=== PATIENT | male | born 1975 | race Caucasian/White ===

== ENCOUNTER 2016-03-03 23:56 | Emergency (ER) | payer MEDICAID, OTHER ==
[~2016-03-03] VITALS: Ht 165.1 cm; Wt 85.5 kg
[2016-03-04 00:03] VITALS: Ht 165.1 cm; Wt 85.5 kg
[2016-03-04] MEDS ORDERED: SOD CHLORIDE 0.9% 500 ML IV STA (01:09)
[2016-03-04 01:53] LABS: BASOPHILS % 0.2 % (0.0-2.0); EOSINOPHILS # 0.1 10^3/ul (0.0-0.5); EOSINOPHILS % 0.5 % (0.0-7.0); HEMATOCRIT 46.5 % (42.0-52.0); HEMOGLOBIN 15.9 g/dl (14.0-18.0); LYMPHOCYTES # 2.4 10^3/ul (0.8-2.9); LYMPHOCYTES % 21.3 % (15.0-51.0); MEAN CORPUSCULAR HEMOGLOBIN 29.8 pg (29.0-33.0); MEAN CORPUSCULAR HGB CONC 34.2 g/dl (32.0-37.0); MEAN CORPUSCULAR VOLUME 86.9 fl (82.0-101.0); MEAN PLATELET VOLUME 8.1 fl (7.4-10.4); MONOCYTE # 0.5 10^3/ul (0.3-0.9); MONOCYTES % 4.8 % (0.0-11.0); NEUTROPHIL # 8.1 10^3/ul (1.6-7.5); NEUTROPHILS % 73.2 % (39.0-77.0); PLATELET COUNT 233 10^3/UL (140-440); RED BLOOD COUNT 5.36 10^6/ul (4.70-6.10); RED CELL DISTRIBUTION WIDTH 13.3 % (11.5-14.5); UNCORRECTED WBC 11.1 10^3/ul (4.8-10.8); WHITE BLOOD COUNT 11.1 10^3/ul (4.8-10.8)
--- NOTE | 2016-03-04 01:53 | RADRPT ---
PROCEDURE: Portable chest x-ray. CLINICAL INDICATION: Chest pain. TECHNIQUE: Portable AP view of the chest. COMPARISON: None. FINDINGS: No pulmonary edema or conolidation is identified. The cardiac silhouette is magnified. No pleural effusion is seen. There is no pneumothorax. IMPRESSION: 1. No evidence of acute cardiopulmonary disease. RPTAT: HTAR .Tayo Kinney MD, MD Date Time Electronically viewed and signed by .Tayo Kinney MD, on 03/04/2016 01:52 .R/
[2016-03-04 01:55] LABS: CONDITION 1
[2016-03-04 02:01] LABS: CHLORIDE 103 mmol/L (97-110)
[2016-03-04 02:02] LABS: INR 0.87; PROTIME 11.8 Sec (12.2-14.2); PT RATIO 0.9; SODIUM 143 mmol/L (135-144)
[2016-03-04 02:03] LABS: PARTIAL THROMBOPLASTIN TIME 27.8 Sec (25.0-35.0)
[2016-03-04 02:04] LABS: CREATININE 0.71 mg/dl (0.61-1.24)
[2016-03-04 02:05] LABS: ANION GAP 17 (8-16); BLOOD UREA NITROGEN 15 mg/dl (7-20); CALCIUM 9.2 mg/dl (8.4-10.2); CARBON DIOXIDE 27 mmol/L (21-31); GLUCOSE 103 mg/dl (70-220)
[2016-03-04 02:22] LABS: TROPONIN-I < 0.012 ng/ml (0.00-0.12)
[2016-03-04 03:08] VITALS: BP 118/72; PULSE 75; RESP 20
--- NOTE | 2016-03-04 05:22 | ERD ---
ER Documentation Chief Complaint Date/Time DATE: 03/04/16 TIME: 05:18 Chief Complaint LUQ ABD PAIN WITH N/V STARTING TODAY. ALSO WITH SHAKINESS AND ANXIETY HPI 40-year-old male previously healthy presenting with complaints of sudden onset dizziness, chest pressure, shortness of breath, with nonbloody and nonbilious today while at work. Pain was pressure-like, in the center of his chest, nonradiating. He felt an associated "cramping" in his left upper quadrant that has now resolved. 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 He states that this episode has happened to him twice in the past for which she was not seen by a physician. Currently all of his symptoms have improved. He denies any history of recent surgeries, travel, immobilization. No personal history of blood clots. No family history of blood clots. ROS All systems reviewed and are negative except as per history of present illness. PMhx/Soc Medical and Surgical Hx: pt denies Medical Hx, pt denies Surgical Hx History of Surgery: No Anesthesia Reaction: No Hx Neurological Disorder: No Hx Respiratory Disorders: No Hx Cardiac Disorders: No Hx Psychiatric Problems: No Hx Miscellaneous Medical Probl: No Hx Alcohol Use: No Hx Substance Use: No Hx Tobacco Use: No Smoking Status: Never smoker FmHx Family History: No coronary disease, No diabetes Physical Exam Vitals Vital Signs Date Time Temp Pulse Resp B/P Pulse Ox O2 Delivery O2 Flow Rate FiO2 03/04/16 03:08 75 20 118/72 97 Room Air 03/04/16 02:42 75 15 129/86 98 Room Air 03/04/16 00:03 98.0 87 22 151/88 98 Physical Exam Const: Well-appearing, no distress, nontoxic, no diaphoresis Head: Atraumatic Eyes: Normal Conjunctiva, Nasim, EOMI ENT: Normal External Ears, Nose and Mouth. Neck: Full range of motion.No meningismus. Resp: Clear to auscultation bilaterally Cardio: Regular rate and rhythm, no murmurs Abd: Soft, non tender, non distended. Normal bowel sounds Skin: No petechiae or rashes Back: No midline or flank tenderness Ext: No cyanosis, or edema, 2+ distal pulses bilaterally, equal Neur: Awake and alert and oriented 3, cerebellar exam normal, strength and sensations intact in all 4 extremities, normal gait, normal Romberg Psych: Somewhat anxious, normal judgment and insight, no suicidal or homicidal ideations, no hallucinations Result Diagram: 03/04/165 03/04/165 Results 24 hrs Laboratory Tests Test 03/04/16 01:45 Activated Partial Thromboplast Time 27.8Sec Anion Gap 17 Basophils # 0.010^3/ul Basophils % 0.2% Blood Urea Nitrogen 15mg/dl Calcium Level 9.2mg/dl Carbon Dioxide Level 27mmol/L Chloride Level 103mmol/L Creatinine 0.71mg/dl Eosinophils # 0.110^3/ul Eosinophils % 0.5% Glucose Level 103mg/dl Hematocrit 46.5% Hemoglobin 15.9g/dl INR International Normalized Ratio 0.87 Lymphocytes # 2.410^3/ul Lymphocytes % 21.3% Mean Corpuscular Hemoglobin 29.8pg Mean Corpuscular Hemoglobin Concent 34.2g/dl Mean Corpuscular Volume 86.9fl Mean Platelet Volume 8.1fl Monocytes # 0.510^3/ul Monocytes % 4.8% Neutrophils # 8.110^3/ul Neutrophils % 73.2% Nucleated Red Blood Cells # 0.010^3/ul Nucleated Red Blood Cells % 0.0/100WBC Platelet Count 86100^3/UL Potassium Level 4.0mmol/L Prothrombin Time 11.8Sec Prothrombin Time Ratio 0.9 Red Blood Count 5.3610^6/ul Red Cell Distribution Width 13.3% Sodium Level 143mmol/L Troponin I < 0.012ng/ml White Blood Count 11.110^3/ul Current Medications Medications (Trade) Dose Ordered Sig/Samuel Route PRN Reason Start Time Stop Time Status Last Admin Dose Admin Sodium Chloride (NS) 500 ml @ 500 mls/hr Q1H STAT IV 03/04/16 01:09 03/04/16 02:08 DC 03/04/16 01:43 Procedures/MDM The patients vitals are within normal limits and labs are unremarkable. The ECG did not show any concerning abnormalities. I have a low suspicion for an arrhythmia, acute coronary syndrome, dissection, PE, ischemic CVA or intracranial hemorrhage. Etiology for his symptoms is unknown but likely benign. He is low risk for cardiac etiology or pulmonary embolism. He is PERC negative. His symptoms may be related to his stress and lack of sleep. I discussed this possibility with the patient. He actually agrees that this may be the cause as he has been feeling very stressed lately. Patient's symptoms have stabilized while in the department and are suitable for outpatient follow up. I advised follow up with primary care physician in 1-2 days. Return precautions were discussed at bedside. Departure Diagnosis: Primary Impression: Dizziness Additional Impression: Chest discomfort Condition: Stable Patient Instructions: Possible Causes of Dizziness or Fainting, Chest Pain, Uncertain Cause Additional Instructions: Return to the ER for any worsening symptoms, JOSUE DENTON MD Mar 04, 2016 05:22
== END 2016-03-04 03:38 | disposition home or self-care (01) ==
LOC: E/R 23:56
DX: R42 Dizziness and giddiness (principal); R07.89 Other chest pain
CPT/HCPCS: 36415; 71010; 80048; 84484; 85025; 85610; 85730; 93005; 96360; J7040; Z7502

== ENCOUNTER 2016-03-07 04:49 | Emergency (ER) | payer MEDICAID ==
[~2016-03-07] VITALS: Ht 172.7 cm; Wt 84.5 kg
[2016-03-07 04:52] VITALS: Ht 172.7 cm; Wt 84.5 kg
[2016-03-07] MEDS ORDERED: NAPR-260 PO (06:39)
[2016-03-07] MEDS ORDERED: CYCL-319 PO (06:39)
--- NOTE | 2016-03-07 08:49 | ERD ---
DATE OF SERVICE: 03/07/2016 HISTORY OF PRESENT ILLNESS: The patient is a 40-year-old male complaining of neck pain. The patien t states that it has been going on for the last 2 days. He has had no fevers, no vomiting. He has a mild headache. No visual changes. He has not taken medications for his symptoms. He states he a lso has a history of anxiety. He feels that his sleeping pattern has been related to his anxiety bu t has no suicidal or homicidal ideations. He denies any weakness. He states that the pain comes an d goes. He does not know what provokes it or resolves it. He describes it as a dull aching pain. He has never had this before aside from the last 2 days. PAST MEDICAL HISTORY: Denies medical problems. ALLERGIES: DENIES ALLERGIES TO MEDICATIONS. PAST SURGICAL HISTORY: Denies. SOCIAL HISTORY: Denies drug use. REVIEW OF SYSTEMS: A 12-point review of systems was done. Refer to HPI for positives; all other sy stems negative. PHYSICAL EXAMINATION VITAL SIGNS: Temperature is 98.2, pulse is 77, blood pressure is 118/61, respiratory rate 20, O2 sa turation 98% on room air. Pain intensity 3/10. GENERAL: The patient is well-appearing, well-nourished, no acute distress. HEENT: Atraumatic. Conjunctivae are pink. Pupils equal, round, and reactive to light. There is no s cleral icterus. Tympanic membranes clear bilaterally. Oropharynx clear. No nystagmus or photophobia . CHEST: Clear to auscultation bilaterally. There are no rales, wheezes or rhonchi. HEART: Regular rate and rhythm. No murmurs, clicks, rubs or gallops. No S3 or S4. ABDOMEN: Soft, nontender and nondistended. Good bowel sounds. No rebound or guarding. No gross michelle tonitis. No gross organomegaly or masses. No Alamo sign or McBurney point tenderness. NECK: The patient has tenderness to palpation over bilateral lower occipital scalp. No midline cer vical tenderness. No bony step-offs. The patient has normal nuchal rigidity. DIAGNOSIS: Neck pain. MEDICAL DECISION MAKING: I have low suspicion for acute fracture or dislocation, low suspicion for tendon or ligament injury; low suspicion for neuro deficit. DISCHARGE: The patient is discharged stable. The patient is told to take irae-ejd-uyhgrid ibuprofe n and Tylenol and given a prescription for naproxen and Flexeril. The patient was given strict ER p recautions. The patient was told if symptoms progress or worsen to return to the ER. All other que stions answered at time of discharge. Discharge summary given at the time of departure. The patien t understood and complied with plan. Dictated By: JACKIE DE LEON PA for OPAL ERNANDEZ/NTS Conf#: [id number] DID#: [id number]
== END 2016-03-07 07:05 | disposition home or self-care (01) ==
LOC: FTE 04:49
DX: M54.2 Cervicalgia (principal)
CPT/HCPCS: 99283